=== PATIENT | female | born 1995 | race Caucasian/White ===

== ENCOUNTER 2016-10-09 00:18 | Emergency (ER) | payer OTHER ==
[2016-10-09 02:40] VITALS: BP 120/82
== END 2016-10-09 02:40 | disposition home or self-care (01) ==
LOC: ED 00:18
DX: F41.0 Panic disorder [episodic paroxysmal anxiety] (principal)

== ENCOUNTER 2018-03-13 17:19 | Emergency (ER) | payer SELFPAY ==
[~2018-03-13] VITALS: Ht 160 cm; Wt 65.3 kg
[2018-03-13 17:22] VITALS: BP 111/71; Ht 160 cm; Wt 65.3 kg
== END 2018-03-13 18:29 | disposition home or self-care (01) ==
LOC: ED 17:19
DX: S93.401A Sprain of unspecified ligament of right ankle, initial encounter (principal); X50.1XXA Overexertion from prolonged static or awkward postures, initial encounter; Y93.41 Activity, dancing; Y92.89 Other specified places as the place of occurrence of the external cause; Y99.8 Other external cause status